=== PATIENT | female | born 1980 | race Caucasian/White ===

== ENCOUNTER 2016-09-12 08:45 | Emergency (ER) | payer BC ==
[2016-09-12 09:14] VITALS: BP 131/76
--- NOTE | 2016-09-12 09:21 | UC ---
Throat Pain/Nasal Martir HPI - HPI Summary HPI Summary: sore throat x 1 day , no fever, no chills, no cough , no nasal congestion - History of Current Complaint Chief Complaint: UCRespiratory Stated Complaint: THROAT Time Seen by Provider: 09/12/16 09:07 Hx Obtained From: Patient Hx Last Menstrual Period: Tubal ligation Onset/Duration: Gradual Onset, Lasting Days - 1, Still Present Severity: Moderate Cough: None Associated Signs & Symptoms: Negative: Wheezing, Hoarseness, Sinus Discomfort, Nasal Discharge, Fever, Vomiting, Rash - Allergies/Home Medications Allergies/Adverse Reactions: Allergies Allergy/AdvReac Type Severity Reaction Status Date / Time Latex Allergy Severe Rash Verified 09/12/16 08:55 Morphine Allergy Unknown Unknown Verified 09/12/16 08:55 Reaction Details SCALLOPS Allergy TONGUE Uncoded 09/12/16 08:55 SWELLED Home Medications: Home Medications LevoCETirizine TAB (NF) [Xyzal TAB (NF)] 5 mg PO BEDTIME 09/12/16 [History Confirmed 09/12/16] ValACYclovir (*) [Valtrex 500 mg (*)] 500 mg PO DAILY 09/12/16 [History Confirmed 09/12/16] Venlafaxine CAP (NF) [Effexor CAP (NF)] 0.5 tab BEDTIME 09/12/16 [History Confirmed 09/12/16] PMH/Surg Hx/FS Hx/Imm Hx Respiratory History Of: Reports: Asthma - INHALER PRN Neurological History Of: Reports: Migraine - 2-3 PER YEAR- TREATS WTIH EXTRA STRENGTH TYLENOL Psychological History Of: Reports: Anxiety - TO START CELEXA - Surgical History Surgical History: Yes Surgery Procedure, Year, and Place: c section 04/2011-[facility] – [place]. SEVERAL DYSPLASTIC NEVI REMOVED. Tubal ligation - Family History Known Family History: Negative: Diabetes - Social History Alcohol Use: Rare Substance Use Type: None Smoking Status (MU): Never Smoked Tobacco - Immunization History Most Recent Influenza Vaccination: 2016 Most Recent Tetanus Shot: UTD Review of Systems Constitutional: Negative Skin: Negative Eyes: Negative ENT: Sore Throat Respiratory: Negative Cardiovascular: Negative Gastrointestinal: Negative All Other Systems Reviewed And Are Negative: Yes Physical Exam Triage Information Reviewed: Yes Appearance: Well-Appearing, No Pain Distress, Well-Nourished Vital Signs: Initial Vital Signs Temp 98.4 F 09/12/16 08:59 Pulse 92 09/12/16 08:59 Resp 18 09/12/16 08:59 BP 131/76 09/12/16 08:59 Pulse Ox 98 09/12/16 08:59 Vital Signs Reviewed: Yes Eyes: Positive: Conjunctiva Clear ENT: Positive: Normal ENT inspection, Hearing grossly normal, Pharynx normal, TMs normal. Negative: Pharyngeal erythema, Nasal congestion, Nasal drainage Neck exam: Normal Neck: Positive: Supple, Nontender, No Lymphadenopathy Respiratory: Positive: Chest non-tender, Lungs clear, Normal breath sounds Cardiovascular: Positive: RRR, No Murmur, Pulses Normal Throat Pain/Nasal Course/Dx - Differential Dx/Diagnosis Provider Diagnoses: viral pharyngitis Discharge - Discharge Plan Condition: Stable Disposition: HOME Patient Education Materials: Pharyngitis (ED) Referrals: Mikey Jenkins DO [Primary Care Provider] - If Needed Additional Instructions: negative rapid strep no need for antibiotics at this time cont. with rest, increase fluid, take ibuprofen as needed for pain or fever follow up as needed
== END 2016-09-12 09:26 | disposition home or self-care (01) ==
LOC: UCCORT 08:45
DX: J02.9 Acute pharyngitis, unspecified (principal); Z88.6 Allergy status to analgesic agent; Z91.018 Allergy to other foods
CPT/HCPCS: 87651; 99211; G0463

== ENCOUNTER 2017-06-16 19:34 | Emergency (ER) | payer BC ==
[2017-06-16 21:11] VITALS: BP 132/71
[2017-06-16] MEDS ORDERED: Oseltamivir CAP* 75 MG CAP PO ONE (21:48)
--- NOTE | 2017-06-16 21:50 | UC ---
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 + febrile. H/O sinus infections in past with complications due to asthma on daily preventivie meds + has neb at home - History of Current Complaint Chief Complaint: UCGeneralIllness Stated Complaint: WHEEZY CONGESTION DIARRHEA Time Seen by Provider: 06/16/17 21:30 Hx Obtained From: Patient Hx Last Menstrual Period: 05/25/17 ?: No Severity Currently: Moderate Severity Initially: Moderate Pain Intensity: 7 - Allergy/Home Medications Allergies/Adverse Reactions: Allergies Allergy/AdvReac Type Severity Reaction Status Date / Time MS Latex [Latex] Allergy Severe Rash Verified 06/16/17 21:11 MS Morphine [Morphine] Allergy Unknown Unknown Verified 06/16/17 21:11 Reaction Details SCALLOPS Allergy TONGUE Uncoded 06/16/17 21:11 SWELLED Home Medications: Home Medications Albuterol HFA INHALER* [Ventolin HFA Inhaler*] 06/16/17 [History] Budesonide/Formote 80/4.5(NF) [Symbicort 80/4.5 (NF)] 06/16/17 [History] Triamcinolone NASAL SPRAY* [Nasacort Aq Nasal [place]*] 06/16/17 [History] PMH/Surg Hx/FS Hx/Imm Hx Previously Healthy: Yes - asthma - Surgical History Surgical History: Yes Surgery Procedure, Year, and Place: [place] [place] SEVERAL DYSPLASTIC NEVI REMOVED. Tubal ligation - Family History Known Family History: Negative: Diabetes - Social History Alcohol Use: Rare Substance Use Type: None Smoking Status (MU): Never Smoked Tobacco - Immunization History Most Recent Influenza Vaccination: 2016 Most Recent Tetanus Shot: UTD Review of Systems Constitutional: Fever, Chills, Fatigue ENT: Sore Throat, Ear Ache, Nasal Discharge, Sinus Congestion, Sinus Pain/ Tenderness Respiratory: Shortness Of Breath, Cough Gastrointestinal: Abdominal Pain, Diarrhea, Nausea Is Patient Immunocompromised?: No All Other Systems Reviewed And Are Negative: Yes Physical Exam Triage Information Reviewed: Yes Appearance: No Pain Distress, Well-Nourished, Ill-Appearing Vital Signs: Initial Vital Signs Temp 98.8 F 06/16/17 21:06 Pulse 96 06/16/17 21:06 Resp 18 06/16/17 21:06 BP 132/71 06/16/17 21:06 Pulse Ox 100 06/16/17 21:06 Vital Signs Reviewed: Yes Eyes: Positive: Conjunctiva Clear ENT: Positive: Hearing grossly normal, Pharyngeal erythema - mild, Nasal congestion, TM dull - + fluid posterior to TM, TM red - moderate erythema b/l, + tenderness pinna pulling, Tonsillar swelling - mild, Sinus tenderness - frontal, max, Uvula midline. Negative: Tonsillar exudate Neck: Positive: Supple, Tenderness @, Enlarged Nodes @ - b/l submand Respiratory: Positive: Chest non-tender, Normal breath sounds, No respiratory distress, No accessory muscle use, Wheezing - exp b/l all lobes Cardiovascular: Positive: RRR, No Murmur Abdomen Description: Positive: Nontender, No Organomegaly, Soft. Negative: CVA Tenderness (R), CVA Tenderness (L) Flu Course/Dx - Course Course Of Treatment: rapid flu + B, abx given d/t history of sinus infections and PNA, neb meds given, tamiflu- patient refused due to h/o asthma, recommended from beauty shop manager not to take. - Differential Dx/Diagnosis Provider Diagnoses: influ B Discharge - Discharge Plan Condition: Good Disposition: HOME Prescriptions: Albuterol 2.5MG/3ML (0.083%)* [Ventolin 2.5 MG/3 ML NEB.SYED*] 2.5 mg INH Q4H # 60 neb.syed Azithromyxin ALCIDES (NF) [Z-Alcides (Zithromax) 250 mg tabs #6] 2 tab PO .TODAY, THEN 1 DAILY #6 tab Oseltamivir CAP* [Tamiflu CAP*] 75 mg PO BID #9 cap Patient Education Materials: Influenza (ED), Ear Infection (ED) Forms: *Work Release Referrals: Jes Castillo MD [Primary Care Provider] - Additional Instructions: - Increase fluids - tamiflu as directed - Albuterol inhaler as needed for wheezing - Azithromycin for sinus/ ear symptoms.
== END 2017-06-16 21:57 | disposition home or self-care (01) ==
LOC: UCCORT 19:34
DX: J10.1 Influenza due to other identified influenza virus with other respiratory manifestations (principal); Z20.828 Contact with and (suspected) exposure to other viral communicable diseases; J45.909 Unspecified asthma, uncomplicated
CPT/HCPCS: 87502; 99212; A9270-GY; G0463

== ENCOUNTER 2017-07-05 11:31 | Emergency (ER) | payer BC ==
[2017-07-05 12:58] VITALS: BP 148/69
--- NOTE | 2017-07-05 13:10 | UC ---
Throat Pain/Nasal Martir HPI - HPI Summary HPI Summary: Sore throat for a few days she has a friend who has mono and is concerned that she does as well, no fevers but lymph in neck feels swollen and uncomfortable - History of Current Complaint Chief Complaint: UCRespiratory Stated Complaint: SORE THROAT Time Seen by Provider: 07/05/17 12:50 Hx Obtained From: Patient Hx Last Menstrual Period: 06/15/17 ?: No Onset/Duration: Gradual Onset, Lasting Days - 7, Still Present Severity: Moderate Pain Intensity: 2 Pain Scale Used: 0-10 Numeric Cough: Nonproductive - Allergies/Home Medications Allergies/Adverse Reactions: Allergies Allergy/AdvReac Type Severity Reaction Status Date / Time latex Allergy Rash Verified 07/05/17 12:49 morphine Allergy Unknown Verified 07/05/17 12:49 Reaction Details SCALLOPS Allergy TONGUE Uncoded 07/05/17 12:49 SWELLED Home Medications: Home Medications Albuterol 2.5MG/3ML (0.083%)* [Ventolin 2.5 MG/3 ML NEB.SYED*] 2.5 mg INH Q4H PRN 07/05/17 [History Confirmed 07/05/17] PMH/Surg Hx/FS Hx/Imm Hx Previously Healthy: Yes Respiratory History: Asthma Psychological History: Depression - Surgical History Surgical History: Yes Surgery Procedure, Year, and Place: c section 04/2011-[facility] – [place]. SEVERAL DYSPLASTIC NEVI REMOVED. Tubal ligation - Family History Known Family History: Negative: Diabetes - Social History Occupation: Employed Full-time Lives: With Family Alcohol Use: Rare Substance Use Type: None Smoking Status (MU): Never Smoked Tobacco - Immunization History Most Recent Influenza Vaccination: 2016 Most Recent Tetanus Shot: UTD Review of Systems Constitutional: Negative Skin: Negative Eyes: Negative ENT: Sore Throat Respiratory: Negative Cardiovascular: Negative Gastrointestinal: Negative Genitourinary: Negative Motor: Negative Neurovascular: Negative Musculoskeletal: Negative Neurological: Negative Psychological: Negative Is Patient Immunocompromised?: No All Other Systems Reviewed And Are Negative: Yes Physical Exam Triage Information Reviewed: Yes Appearance: Well-Appearing, No Pain Distress, Obese Vital Signs: Initial Vital Signs Temp 98.2 F 07/05/17 12:52 Pulse 88 07/05/17 12:52 Resp 18 07/05/17 12:52 BP 148/69 07/05/17 12:52 Pulse Ox 98 07/05/17 12:52 Vital Signs Reviewed: Yes Eye Exam: Normal Eyes: Positive: Conjunctiva Clear ENT Exam: Normal ENT: Positive: Normal ENT inspection, Hearing grossly normal, Pharyngeal erythema, TMs normal, Uvula midline. Negative: Nasal congestion, Tonsillar swelling, Tonsillar exudate, Trismus, Muffled voice, Hoarse voice, Dental tenderness, Sinus tenderness Dental Exam: Normal Neck exam: Normal Neck: Positive: Supple, Nontender, No Lymphadenopathy Respiratory Exam: Normal Respiratory: Positive: Chest non-tender, Lungs clear, Normal breath sounds, No respiratory distress, No accessory muscle use Cardiovascular Exam: Normal Cardiovascular: Positive: RRR, No Murmur, Pulses Normal, Brisk Capillary Refill Musculoskeletal Exam: Normal Musculoskeletal: Positive: Strength Intact, ROM Intact, No Edema Neurological Exam: Normal Neurological: Positive: Alert, Muscle Tone Normal Psychological Exam: Normal Skin Exam: Normal Diagnostics - Laboratory Diagnostic Studies Completed/Ordered: RST (-) Throat Pain/Nasal Course/Dx - Course Assessment/Plan: [place] and Cbc, rest increase fluids, tylenol, ibuprofen follow with pcp prn - Differential Dx/Diagnosis Provider Diagnoses: Viral pharyngitis Discharge - Discharge Plan Condition: Stable Disposition: HOME Patient Education Materials: Pharyngitis (ED), Viral Syndrome (ED) Referrals: Jes Castillo MD [Primary Care Provider] - If Needed
[2017-07-06 11:23] LABS: ABS Basophils 0.1 10^3/ul (0-0.2); ABS Eosinophils 0.1 10^3/ul (0-0.6); ABS Lymphocytes 1.6 10^3/ul (1.0-4.8); ABS Monocytes 0.6 10^3/ul (0-0.8); ABS Neutrophils 5.8 10^3/ul (1.5-7.7); ABS Nucleated RBC 0 10^3/ul; Eosinophil % 1.3 % (0-6); Hematocrit 40 % (35-47); Hemoglobin 13.2 g/dl (12.0-16.0); Lymphocyte % 19.2 % (25-47); Mean Corpuscular HGB Conc 33 g/dl (31-36); Mean Corpuscular Hemoglobin 30 pg (27-31); Mean Corpuscular Volume 91 fL (80-97); Mean Platelet Volume 11 um3 (7.4-10.4); Nucleated Red Blood Cells % 0.1; Platelet Count 195 10^3/ul (150-450); Red Blood Count 4.38 10^6/ul (4.0-5.4); Red Cell Distribution Width 13 % (10.5-15); White Blood Count 8.1 10^3/ul (3.5-10.8)
== END 2017-07-05 13:56 | disposition home or self-care (01) ==
LOC: UCCORT 11:31
DX: J02.8 Acute pharyngitis due to other specified organisms (principal); Z20.828 Contact with and (suspected) exposure to other viral communicable diseases; Z88.5 Allergy status to narcotic agent; Z91.013 Allergy to seafood
CPT/HCPCS: 36415; 85025; 86308; 87651; 99211; G0463

== ENCOUNTER 2018-01-05 16:04 | Emergency (ER) | payer BC ==
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
[2018-01-05 16:24] VITALS: BP 118/62
--- NOTE | 2018-01-05 16:34 | UC ---
UC General HPI - HPI Summary HPI Summary: sore throat x 2 days. admits to swollen glands. runny nose - History of Current Complaint Chief Complaint: UCGeneralIllness Stated Complaint: SORE THROAT, COUGH Time Seen by Provider: 01/05/18 16:28 Hx Obtained From: Patient Hx Last Menstrual Period: 12/19/17 Onset/Duration: Gradual Onset Timing: Constant Pain Intensity: 5 Aggravating: nothing Associated Signs & Symptoms: Negative: Fever - Allergy/Home Medications Allergies/Adverse Reactions: Allergies Allergy/AdvReac Type Severity Reaction Status Date / Time latex Allergy Rash Verified 01/05/18 16:24 morphine Allergy Unknown Verified 01/05/18 16:24 Reaction Details SCALLOPS Allergy TONGUE Uncoded 01/05/18 16:24 SWELLED PMH/Surg Hx/FS Hx/Imm Hx Respiratory History: Asthma Psychological History: Anxiety - Surgical History Surgical History: Yes Surgery Procedure, Year, and Place: c section 04/2011[place] [place]. SEVERAL DYSPLASTIC NEVI REMOVED. Tubal ligation - Family History Known Family History: Positive: None Negative: Diabetes - Social History Occupation: Employed Full-time Lives: With Family Alcohol Use: Rare Substance Use Type: None Smoking Status (MU): Never Smoked Tobacco - Immunization History Most Recent Influenza Vaccination: 2016 Most Recent Tetanus Shot: UTD Vaccination Up to Date: Yes Review of Systems Constitutional: Negative Skin: Negative Eyes: Negative ENT: Sore Throat Respiratory: Negative Cardiovascular: Negative Gastrointestinal: Negative Genitourinary: Negative Motor: Negative Neurovascular: Negative Musculoskeletal: Negative Neurological: Negative Psychological: Negative Is Patient Immunocompromised?: No All Other Systems Reviewed And Are Negative: Yes Physical Exam Triage Information Reviewed: Yes Appearance: Well-Appearing Vital Signs: Initial Vital Signs Temp 97.9 F 01/05/18 16:20 Pulse 85 01/05/18 16:20 Resp 21 01/05/18 16:20 BP 118/62 01/05/18 16:20 Pulse Ox 98 01/05/18 16:20 Vital Signs Reviewed: Yes Eyes: Positive: Conjunctiva Clear ENT: Positive: Pharyngeal erythema, TMs normal, Uvula midline. Negative: Nasal congestion, Nasal drainage, Trismus, Muffled voice, Hoarse voice Neck: Positive: Supple, Tenderness @ - peritonsilar nodes., Enlarged Nodes @ - pewritonsilar nodes Respiratory: Positive: Lungs clear, Normal breath sounds Cardiovascular: Positive: RRR, No Murmur Abdomen Description: Positive: Nontender, No Organomegaly, Soft Bowel Sounds: Positive: Absent Musculoskeletal: Positive: ROM Intact Neurological: Positive: Alert Psychological: Positive: Age Appropriate Behavior Skin Exam: Normal Diagnostics - Laboratory Diagnostic Studies Completed/Ordered: rapid strep neg Course/Dx - Course Course Of Treatment: rapid strep=neg. tx supportive - Differential Dx - Multi-Symptom Provider Diagnoses: pharyngitis Discharge - Sign-Out/Discharge Documenting (check all that apply): Patient Departure All imaging exams completed and their final reports reviewed: No Studies - Discharge Plan Condition: Stable Disposition: HOME Patient Education Materials: Pharyngitis (ED) Referrals: Jes Castillo MD [Primary Care Provider] - 7 Days - Billing Disposition and Condition Condition: STABLE Disposition: Home
== END 2018-01-05 17:04 | disposition home or self-care (01) ==
LOC: UCCORT 16:04
DX: J02.9 Acute pharyngitis, unspecified (principal); Z88.5 Allergy status to narcotic agent
CPT/HCPCS: 87651; 99211; G0463

== ENCOUNTER 2018-02-04 18:42 | Emergency (ER) | payer BC ==
[2018-02-04 19:21] VITALS: BP 111/61
--- NOTE | 2018-02-04 19:39 | UC ---
Ear Complaint HPI - HPI Summary HPI Summary: 2 day history of left ear pain and lymph node enlargement on the left side, without fever. Chronic allergies, asthma and sinus symptoms. - History of Current Complaint Chief Complaint: UCEar Stated Complaint: L EAR ISSUE Time Seen by Provider: 02/04/18 19:30 Hx Obtained From: Patient Hx Last Menstrual Period: 02/03/18 ?: No Onset/Duration: Gradual Onset, Lasting Days Pain Intensity: 4 Associated Signs/Symptoms: Positive: Swelling @ - left posterior auricular area. - Allergies/Home Medications Allergies/Adverse Reactions: Allergies Allergy/AdvReac Type Severity Reaction Status Date / Time latex Allergy Rash Verified 02/04/18 19:10 morphine Allergy Unknown Verified 02/04/18 19:10 Reaction Details SCALLOPS Allergy TONGUE Uncoded 02/04/18 19:10 SWELLED PMH/Surg Hx/FS Hx/Imm Hx Previously Healthy: Yes - overweight Respiratory History: Asthma - Surgical History Surgical History: Yes Surgery Procedure, Year, and Place: c section 04/2011-[facility] [place]. SEVERAL DYSPLASTIC NEVI REMOVED. Tubal ligation - Family History Known Family History: Positive: Cardiac Disease, Other - father has lymphoma - Social History Occupation: Employed Full-time Lives: With Family - single parent to son Alcohol Use: Rare Substance Use Type: None Smoking Status (MU): Never Smoked Tobacco - Immunization History Most Recent Influenza Vaccination: 2016 Most Recent Tetanus Shot: UTD Vaccination Up to Date: Yes Review of Systems Constitutional: Fatigue Skin: Negative Eyes: Negative ENT: Ear Ache, Nasal Discharge, Sinus Congestion Respiratory: Other - well controlled asthma Cardiovascular: Negative Gastrointestinal: Negative Genitourinary: Negative Motor: Negative Neurovascular: Negative Musculoskeletal: Negative Neurological: Negative Psychological: Negative Is Patient Immunocompromised?: No All Other Systems Reviewed And Are Negative: Yes Physical Exam Triage Information Reviewed: Yes Appearance: Well-Appearing, Pain Distress - mild Vital Signs: Initial Vital Signs Temp 98.6 F 02/04/18 19:16 Pulse 71 02/04/18 19:16 Resp 16 02/04/18 19:16 BP 111/61 02/04/18 19:16 Pulse Ox 98 02/04/18 19:16 Eyes: Positive: Conjunctiva Clear ENT Exam: Other - left ear canal with erythema, edema, approximately 40% closed. + tender left posterior auricular and posterior cervical nodes. ENT: Positive: Hearing grossly normal, Pharynx normal, TMs normal Dental Exam: Normal Respiratory: Positive: Lungs clear, Normal breath sounds Cardiovascular: Positive: RRR, No Murmur Psychological Exam: Normal Skin Exam: Normal Ear Complaint Course/Dx - Course Course Of Treatment: cephalexin for treatment, ear drops - Differential Dx/Diagnosis Differential Diagnosis/HQI/PQRI: Otitis Externa, Otitis Media, URI Provider Diagnoses: left otitis externa Discharge - Sign-Out/Discharge Documenting (check all that apply): Patient Departure All imaging exams completed and their final reports reviewed: No Studies - Discharge Plan Condition: Stable Disposition: HOME Prescriptions: Cephalexin CAP* [Keflex 500 CAP*] 500 mg PO TID #21 cap Neomyc/Polym/HC 1% OTIC SUSP* [Cortisporin Otic Susp 1%*] 4 drop LEFT EAR TID # 1 btl Referrals: Jes Castillo MD [Primary Care Provider] - Additional Instructions: Use cephalexin and ear drops for treatment of left otitis media. You can use acetaminophen or ibuprofen as needed for pain control - Billing Disposition and Condition Condition: STABLE Disposition: Home
== END 2018-02-04 19:51 | disposition home or self-care (01) ==
LOC: UCCORT 18:42
DX: H60.92 Unspecified otitis externa, left ear (principal); Z88.5 Allergy status to narcotic agent
CPT/HCPCS: 99212; G0463

== ENCOUNTER 2018-02-27 19:15 | Emergency (ER) | payer BC ==
[2018-02-27 20:21] VITALS: BP 123/78
--- NOTE | 2018-02-27 21:02 | UC ---
General HPI - HPI Summary HPI Summary: here on 02/04/18 for ear pain/pressure that was tx with keflex and ear drops. she is a little better but returns for ongoing sinus pressure and congestion plus ear pressure. pt is also c/o pain along the sides of her neck(pointing to sternocleidomastoid mm's/posterior cervical chain nodes). 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 - History of Current Complaint Chief Complaint: UCRespiratory Stated Complaint: RECHECK-SINUSES,EARS Time Seen by Provider: 02/27/18 20:21 Hx Obtained From: Patient Hx Last Menstrual Period: 02/03/18 Onset/Duration: Gradual Onset Timing: Constant Pain Intensity: 4 Aggravating: nothing Alleviating: nothing - Allergy/Home Medications Allergies/Adverse Reactions: Allergies Allergy/AdvReac Type Severity Reaction Status Date / Time cephalexin [From Keflex] Allergy Severe Nausea Verified 02/27/18 20:18 latex Allergy Rash Verified 02/27/18 20:15 morphine Allergy Unknown Verified 02/27/18 20:15 Reaction Details SCALLOPS Allergy TONGUE Uncoded 02/27/18 20:15 SWELLED PMH/Surg Hx/FS Hx/Imm Hx - Additional Past Medical History Additional PMH: HSV 1, HSV 2 Respiratory History: Asthma GI/ History: Gastroesophageal Reflux, Other - IBS Other GI/ History: ibs - Surgical History Surgical History: Yes Surgery Procedure, Year, and Place: c section 04/2011[place] [place] SEVERAL DYSPLASTIC NEVI REMOVED. Tubal ligation - Family History Known Family History: Positive: None, Cardiac Disease, Other - father has lymphoma Negative: Diabetes - Social History Lives: With Family Alcohol Use: None Substance Use Type: None Smoking Status (MU): Never Smoked Tobacco - Immunization History Most Recent Influenza Vaccination: 2016 Most Recent Tetanus Shot: UTD Vaccination Up to Date: Yes Review of Systems Constitutional: Negative Skin: Negative Eyes: Negative ENT: Ear Ache, Sinus Congestion, Sinus Pain/Tenderness Respiratory: Negative Cardiovascular: Negative Gastrointestinal: Negative Genitourinary: Negative Motor: Negative Neurovascular: Negative Musculoskeletal: Negative Neurological: Negative Psychological: Negative Is Patient Immunocompromised?: No All Other Systems Reviewed And Are Negative: Yes Physical Exam Triage Information Reviewed: Yes Appearance: Well-Appearing Vital Signs: Initial Vital Signs Temp 99 F 02/27/18 20:17 Pulse 83 02/27/18 20:17 Resp 17 02/27/18 20:17 BP 123/78 02/27/18 20:17 Pulse Ox 99 02/27/18 20:17 Vital Signs Reviewed: Yes Eyes: Positive: Conjunctiva Clear ENT: Positive: Nasal congestion, TMs normal - Canals are clear. No mastoid tenderness or auricular adenopathy., Sinus tenderness, Other - Tiny vesicles notes to soft palate.. Negative: Nasal drainage Neck: Positive: Supple, Tenderness @ - Posterior cervical chain nodes but nodes are not enlarged. Respiratory: Positive: Lungs clear, Normal breath sounds Cardiovascular: Positive: RRR, No Murmur Abdomen Description: Positive: Nontender, No Organomegaly, Soft Bowel Sounds: Positive: Present Musculoskeletal: Positive: ROM Intact Neurological: Positive: Alert Psychological: Positive: Normal Response To Family, Age Appropriate Behavior Skin Exam: Normal Skin: Negative: rashes Diagnostics - Laboratory Diagnostic Studies Completed/Ordered: RAPID STREP=NEG. TC=PENDING. Course/Dx - Course Course Of Treatment: GIVEN DURATION OF ILLNESS AND SINUS S/S'S WILL TX FOR SINUSITIS. PT ADVISED OF RISK FOR C-DIFF COLITIS GIVEN RECENT ANTIBIOTICS. SHE IS WILLING TO TAKE RISK AND WANTS SINUS ANTIBIOTIC TX. HER EAR/MASTOID EXAM IS UNREMARKABLE. DOUBT EUSTACHIAN TUBE DYSFUNCTION. RAPID STREP WAS NEG AND TC= PENDING. I THINK THE CERVICAL ADENOPATHY MAY BE RELATED TO THE SOFT PALATE VESICLES; HOWEVER, NEED FOR CLOSE F/U AND RECHECK STRESSED TO ENSURE THE ADENOPATHY RESOLVES. - Differential Dx - Multi-Symptom Provider Diagnoses: SINUSITIS. POSTERIOR CERVICAL ADENOPATHY Discharge - Sign-Out/Discharge Documenting (check all that apply): Patient Departure All imaging exams completed and their final reports reviewed: No Studies - Discharge Plan Condition: Stable Disposition: HOME Prescriptions: DOXYcycline CAP(*) [DOXYcycline 100MG CAP(*)] 100 mg PO BID 10 Days #20 cap Patient Education Materials: Sinusitis (ED), Lymphadenopathy (ED) Referrals: Jes Castillo MD [Primary Care Provider] - 7 Days Additional Instructions: DIAGNOSIS: POSTERIOR CERVICAL CHAIN LYMPHADENOPATHY. SINUS CONGESTION. PHARYNGEAL VESICLES. TAKE A PROBIOTIC DAILY - Billing Disposition and Condition Condition: STABLE Disposition: Home
[2018-02-27] MEDS ORDERED: DOXYcycline CAP(*) 100 MG PO ONE (21:03)
== END 2018-02-27 21:10 | disposition home or self-care (01) ==
LOC: UCCORT 19:15
DX: J32.9 Chronic sinusitis, unspecified (principal); R59.0 Localized enlarged lymph nodes; J45.909 Unspecified asthma, uncomplicated; Z88.1 Allergy status to other antibiotic agents; Z88.5 Allergy status to narcotic agent; Z91.040 Latex allergy status; Z91.013 Allergy to seafood
CPT/HCPCS: 87070; 87651; 99212; A9270-GY; G0463

== ENCOUNTER 2018-04-22 05:49 | Day surgery (SDC) | payer BC ==
[~2018-04-22 05:49] MED LIST: Buffered Lidocaine 0.9% SYRIN* 5 ML/SYR SYRINGE INTRADERM ONE
[2018-04-22] MEDS ORDERED: Famotidine IV* 10 MG/ML 2 ML (20 mg) IV ONE (06:00)
[2018-04-22] MEDS ORDERED: Lactated Ringers 1000 ML Bag* 1,000 ML IV SCH (06:00)
[2018-04-22] MEDS ORDERED: Famotidine IV* 10 MG/ML 2 ML (20 mg) ONE (07:16)
[2018-04-22] MEDS ORDERED: fentaNYL* 50 MCG/ML 2 ML VIAL (100 MCG VIAL) ONE (07:27)
[2018-04-22] MEDS ORDERED: Midazolam* 1 MG/ML 5 ML VIAL (5 MG) ONE (07:27)
[2018-04-22] MEDS ORDERED: Acetaminophen TAB* 325 MG PO PRN (07:59)
[2018-04-22] MEDS ORDERED: DiMENhydriNATE IV* 50 MG/ML VIAL IV PUSH PRN (07:59)
[2018-04-22] MEDS ORDERED: Naloxone* 0.4 MG/ML 1 ML VIAL IV PRN (07:59)
[2018-04-22] MEDS ORDERED: Chloroprocaine 2%* 20 ML VIAL ONE (08:33)
[2018-04-22] MEDS ORDERED: Ketorolac INJ* 30 MG/ML 1 ML VIAL ONE (08:33)
[2018-04-22] MEDS ORDERED: DiMENhydriNATE IV* 50 MG/ML VIAL ONE (08:33)
[2018-04-22] MEDS ORDERED: Lidocaine 2% PF * 5 ML VIAL ONE (08:33)
[2018-04-22] MEDS ORDERED: Propofol* 10 MG/ML 20 ML BTL ONE (08:33)
[2018-04-22] MEDS ORDERED: Ondansetron INJ* 2 MG/ML VIAL ONE (08:33)
[2018-04-22 10:03] VITALS: BP 158/96
--- NOTE | 2018-04-22 11:56 | OP ---
DATE OF OPERATION: 04/22/18 - [facility] DATE OF : 80 SURGEON: Justin Howell MD ANESTHESIA: Spinal. PRE-OP DIAGNOSIS: Dysfunctional uterine bleeding, menorrhagia. POST-OP DIAGNOSIS: Dysfunctional uterine bleeding, menorrhagia. OPERATIVE PROCEDURE: Dilation and curettage, hysteroscopy, endometrial ablation. COMPLICATIONS: None. ESTIMATED BLOOD LOSS: Minimal. SPECIMENS: Include endometrium. FINDINGS: Normal cavity and fluffy endometrium. DESCRIPTION OF PROCEDURE: The patient identified, procedure identified as a D and C, hysteroscopy, and endometrial ablation. The patient was taken to the operating room, prepped and draped in the usual fashion in dorsal lithotomy position under spinal anesthesia. Two single-tooth tenaculums were placed in the anterior lip of the cervix and the hysteroscope was inserted. The above findings were noted. Hysteroscope was removed and a sharp curette was inserted, sharp curettage was performed until a good specimen was obtained. The NovaSure device was opened. The array was checked. Based on the sounding length of 10 cm and the cervical dilation length of 4 cm, the cavity length was found to be 6 cm. After the cervix had been progressively dilated up to a #8 Hegar dilator , the array was checked on the NovaSure. The NovaSure was inserted and manipulated to an opening width of 3.2 cm, power setting of 106. The CO2 perforation test was performed and the device passed and device was enabled and NovaSure ablation was done and took place for approximately 1 minute 24 seconds. At the end of the ablation, the hysteroscope was re-inserted and a good ablation was noted at the entire uterine cavity. Good hemostasis was verified. All instruments removed from the vagina and the patient returned to recovery room in stable condition. [id number]/[facility] #: [id number] [facility]
== END 2018-04-22 10:42 | disposition home or self-care (01) ==
LOC: OR 05:49
PROVIDERS: ATTEND Obstetrics & Gynecology
DX: N92.0 Excessive and frequent menstruation with regular cycle (principal); J45.909 Unspecified asthma, uncomplicated; K21.9 Gastro-esophageal reflux disease without esophagitis
CPT/HCPCS: 88305; J1240; J1885; J2250; J2400; J2405; J2704; J3010